=== PATIENT | female | born 1995 | race African-American/Black ===

== ENCOUNTER 2018-10-04 11:00 | Emergency (ER) | payer BC, OTHER ==
[2018-10-04 13:25] LABS: HBSAB Concentration 2.71 mIU/mL; HIV (1/2) Antibody/Antigen Non-Reactive (NonReactive); HIV 1/2 INDEX 0.06 S/CO (<1.00); Hep B Surf AB Non-Reactive (NonReactive); Hep C IgG Ab Non-Reactive (NonReactive); Hep C Index 0.04 S/CO (0-0.79)
== END 2018-10-04 12:39 | disposition home or self-care (01) ==
LOC: ERS 11:00
DX: Z77.21 Contact with and (suspected) exposure to potentially hazardous body fluids (principal); F41.9 Anxiety disorder, unspecified
CPT/HCPCS: 36415; 86706; 86803; 87389; 99283